=== PATIENT | male | born 1980 | race African-American/Black ===

== ENCOUNTER → 2017-06-19 | Outpatient (REF) ==
[~2017-06-19] MED LIST: /CELE20CA PO; /QUET25TA PO; AMBI12.52 PO; BENA25CA PO; SERO50TA PO; ZOLO100T PO; ZOLO50TA PO; ZOLP-187 PO; flexeril PO
--- NOTE | 2017-06-20 04:07 | REP ---
Clinical: Pain and disability . Technique: Internal rotation, external rotation, and Y view left shoulder . Findings: No acute fracture or dislocation. The acromioclavicular and glenohumeral joints are intact. A very subtle density inferior to the acromion process in the subacromial space cannot be excluded and should be correlated with physical examination. No further overt, significant degenerative changes are appreciated. Surrounding soft tissues are unremarkable. Impression: Relatively normal left shoulder radiographs. However subtle ovoid forming density inferior to the acromion process in the subacromial space cannot be excluded and should be correlated with physical examination. Signed by Tre Vaca MD 06/20/2017 03:58 A
== END ==
LOC: M SMT 14:22
PROVIDERS: ATTEND Internal Medicine
DX: Z02.1 Encounter for pre-employment examination (principal)

== ENCOUNTER 2019-01-16 09:46 | Emergency (ER) | payer OTHER ==
[~2019-01-16] VITALS: Ht 180.3 cm; Wt 90.9 kg
[2019-01-16] MEDS ORDERED: IBUPROFEN 800 MG TAB PO ONE (10:15)
--- NOTE | 2019-01-16 10:51 | REP ---
Clinical: Left shoulder trauma . Technique: Internal rotation, external rotation, and Y view. Findings: No acute fracture or dislocation. The acromioclavicular and glenohumeral joints are intact. No periarticular calcifications or degenerative changes are appreciated. Sub acromial space is normal. Surrounding soft tissues are unremarkable. Impression: Normal left shoulder radiographs. Electronically Signed by Tre Vaca MD 01/16/2019 10:43 A
--- NOTE | 2019-01-16 10:52 | REP ---
Clinical: Trauma. Technique: AP view of the pelvis with neutral and frog lateral views of the left hip. Findings: The osseous structures are intact and there is no evidence for acute fracture or dislocation. Heterotopic areas of ossification along the lateral aspect of the left hip consistent with the given history of prior trauma and myositis. Impression: No acute fracture or dislocation. Electronically Signed by Tre Vaca MD 01/16/2019 10:44 A
--- NOTE | 2019-01-16 10:53 | REP ---
Clinical: Left elbow trauma . Technique: AP, lateral, bilateral oblique views of the left elbow. Findings: No acute fracture or dislocation is appreciated. Joint spaces and surrounding soft tissues appear normal. Lateral view demonstrates normal positioning to the anterior and posterior fat pads without evidence for effusion/hemarthrosis. No subcutaneous emphysema or foreign body identified. Impression: Normal left elbow radiographs. Electronically Signed by Tre Vcaa MD 01/16/2019 10:45 A
[2019-01-16 11:42] VITALS: BP 135/83
== END 2019-01-16 11:44 | disposition home or self-care (01) ==
LOC: M ED 09:46
DX: S70.02XA Contusion of left hip, initial encounter (principal); S40.022A Contusion of left upper arm, initial encounter; V49.49XA Driver injured in collision with other motor vehicles in traffic accident, initial encounter; Y92.410 Unspecified street and highway as the place of occurrence of the external cause; Z88.0 Allergy status to penicillin

== ENCOUNTER 2019-01-24 13:40 | Emergency (ER) | payer OTHER ==
[~2019-01-24] VITALS: Ht 180.3 cm; Wt 90.9 kg
[2019-01-24] MEDS ORDERED: KETOROLAC 60 MG/2 ML VIAL (J1885) IM ONE (14:45)
[2019-01-24] MEDS ORDERED: LIDO5DIS41 TD (14:49)
[2019-01-24 15:16] VITALS: BP 118/69
== END 2019-01-24 15:20 | disposition home or self-care (01) ==
LOC: M ED 13:40
DX: Z04.1 Encounter for examination and observation following transport accident (principal); S40.012A Contusion of left shoulder, initial encounter; S70.02XA Contusion of left hip, initial encounter; V89.2XXA Person injured in unspecified motor-vehicle accident, traffic, initial encounter; Y92.89 Other specified places as the place of occurrence of the external cause; Z88.0 Allergy status to penicillin
CPT/HCPCS: 96372; 99283; J1885

== ENCOUNTER 2020-08-31 15:20 | Inpatient (IN) | payer OTHER ==
[~2020-08-31] VITALS: Ht 180.3 cm; Wt 51.8 kg
[~2020-08-31 15:20] MED LIST changes: -/CELE20CA PO; -/QUET25TA PO; +CELE1CAP4 PO; +LIDO5DIS41 TD; +SERO1TAB3 PO
[2020-08-31] MEDS ORDERED: LORazepam 2 MG/ML VIAL IM ONE ×2 (16:30→21:45)
[2020-08-31] MEDS ORDERED: HALOPERIDOL 5MG/ML VIAL (J1630 PER 1) IM ONE ×2 (16:30→21:45)
[2020-08-31 17:01] LABS: HEMATOCRIT 44.7 % (42.0-52.0); HEMOGLOBIN 14.2 g/dl (13.5-17.5); MEAN CORPUSCULAR HEMOGLOBIN 29.2 pg (27.0-33.0); MEAN CORPUSCULAR HGB CONC 31.8 g/dl (32.0-36.5); PLATELET COUNT, AUTOMATED 407 10^3/uL (150-450); RED BLOOD COUNT 4.86 10^6/uL (4.30-6.10); WHITE BLOOD COUNT 7.4 10^3/uL (4.0-10.0)
[2020-08-31 17:30] LABS: ACETAMINOPHEN LEVEL < 2.0 UG/ML (10.0-30.0); ALBUMIN 4.4 GM/DL (3.2-5.2); ALT/SGPT 24 U/L (12-78); BILIRUBIN,DIRECT 0.2 MG/DL (0.0-0.2); BILIRUBIN,TOTAL 0.5 MG/DL (0.2-1.0); BLOOD UREA NITROGEN 13 MG/DL (7-18); CALCIUM LEVEL 9.5 MG/DL (8.5-10.1); CARBON DIOXIDE LEVEL 26 MEQ/L (21-32); CHLORIDE LEVEL 103 MEQ/L (98-107); CREATININE FOR GFR 1.13 MG/DL (0.70-1.30); ETHYL ALCOHOL (ETHANOL) < 0.003 % (0.000-0.010); GLOMERULAR FILTRATION RATE > 60.0 (>60); GLUCOSE, FASTING 105 MG/DL (70-100); POTASSIUM SERUM 3.1 MEQ/L (3.5-5.1); SALICYLATE LEVEL 3.2 MG/DL (5.0-30.0); SODIUM LEVEL 137 MEQ/L (136-145); TOTAL PROTEIN 8.3 GM/DL (6.4-8.2)
[2020-08-31] MEDS ORDERED: POTASSIUM CHLORIDE 10 MEQ SR TABLET PO ONE (18:15)
--- NOTE | 2020-08-31 18:26 | REPVR ---
PROCEDURE INFORMATION: Exam: CT Head Without Contrast Exam date and time: 08/31/2020 6:16 PM Age: 40 years old Clinical indication: Altered mental status/memory loss TECHNIQUE: Imaging protocol: Computed tomography of the head without contrast. Radiation optimization: All CT scans at this facility use at least one of these dose optimization techniques: automated exposure control; mA and/or kV adjustment per patient size (includes targeted exams where dose is matched to clinical indication); or iterative reconstruction. COMPARISON: No relevant prior studies available. FINDINGS: Brain: Unremarkable. No hemorrhage. No significant white matter disease. No edema. Cerebral ventricles: No ventriculomegaly. Bones/joints: Unremarkable. No acute fracture. Paranasal sinuses: Visualized sinuses are unremarkable. No fluid levels. Mastoid air cells: Visualized mastoid air cells are well aerated. Soft tissues: Unremarkable. IMPRESSION: No acute abnormality. Electronically signed by: Polo Tee On 08/31/2020 18:26:32 PM
[2020-08-31 18:41] LABS: AMPHETAMINES LEVEL URINE NEGATIVE (NEGATIVE); BARBITURATES URINE NEGATIVE (NEGATIVE); BENZODIAZEPINES URINE NEGATIVE (NEGATIVE); CANNABINOIDS URINE POSITIVE (NEGATIVE); COCAINE METABOLITE URINE NEGATIVE (NEGATIVE); METHADONE URINE NEGATIVE (NEGATIVE); OPIATES URINE NEGATIVE (NEGATIVE); PHENCYCLIDINE URINE NEGATIVE (NEGATIVE)
[2020-09-01] MEDS ORDERED: traZODone 50 MG TAB PO PRN (13:15)
[2020-09-01] MEDS ORDERED: MOM 30ML SUSPENSION UDC PO PRN (13:15)
[2020-09-01] MEDS ORDERED: ACETAMINOPHEN TAB 650MG DOSE (2X325MG) PO PRN (13:15)
[2020-09-01] MEDS ORDERED: MAALOX 30 ML SUSP *UDC PO PRN (13:15)
--- NOTE | 2020-09-01 19:17 | ECGEPIP ---
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
[2020-09-02 07:36] VITALS: BP 121/70
--- NOTE | 2020-09-02 10:34 | MHHPEPDOC ---
[facility] History & Physical History and Physical DATE OF ADMISSION: Sep 01, 2020 at 13:13 Subjective HPI: Prince presents today after being admitted to the inpatient mental health unit. He reportedly became irritable and blacked out. Patient reported that he had blacked out and became subsequently much more irritable. He reports suicidal thoughts. Patient was brought in and had spent several days in the ER. He was quite upset about this. Patient was guarded during the first discussion, but was generally open to further discussions. He reports that sometimes he feels low and depressed. Patient additionally feels angry and anxious and that he blacks out, but reports that when hes not blacked out, he generally does well. He rep orts that he is currently going to school with support by family and reports stressful events at school. ALLERGIES: Allergies were reviewed. MEDICATIONS: Hes not interested in medications as he reports that hes distrustful of the mental health care system. 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 Consistent with his PTSD screen seeing for psychotic disorders and bipolar disorder. Patient reports a diagnosis of PTSD and denies any suicide attempts other than self-mutilating. No history of medication trials. [facility] that [facility] had several [facility] before. FAMILY HISTORY: He is quite guarded and doesnt wish to answer about his family history. SURGICAL HISTORY: Surgical history was reviewed. Objective Appearance: Hygiene, fair. Behavior: Engaged. Initially guarded, but becomes amenable. Euthymic. Affect: Reactive. Appropriate. Thought Form: Linear and goal directed. Thought Content: No thoughts of self harm. No evidence of suicidal ideation. No evidence of aggressive or homicidal ideation. No evidence of delusions. Judgement: Poor to fair. Insight: Poor to fair. Assessment F43.12 Post-traumatic stress disorder, chronic Plan Offer patient medications, but he declined after intensive discussion. Discuss with him observations period and discharge if he can maintain safety on the unit. Discuss with him that will sign out with on-call provider to determine what wou ld be appropriate if he can go tomorrow or whether he'd wait till Saturday. He is at a one risk for suicide to an effective coping. Estimated length stay is 1 to 3 days. Vital Signs Vital Signs Date Time Temp Pulse Resp B/P (MAP) Pulse Ox O2 Delivery O2 Flow Rate FiO2 09/02/20 07:36 97.3 66 16 121/70 (87) Room Air 09/01/20 13:50 100 Medications No Active Prescriptions or Reported Meds Allergies Coded Allergies: Penicillins (Verified Allergy, Unknown, 08/31/20) ALLY QUAN DO Sep 02, 2020 10:34
[2020-09-02 16:13] VITALS: BP 136/85
--- NOTE | 2020-09-02 17:38 | HPEPDOC ---
General Date of Admission Sep 01, 2020 at 13:13 Date of Service: Sep 02, 2020 Chief Complaint The patient is a 40-year-old male admitted with a reason for visit of Unspecified Depressive Disorder. History of Present Illness 40 year old male admitted to [facility] for unspecified depression. 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 He then lost time about 3 hours in the afternoon after the Math class and could not remember what he did. He was confused about how he came to the ED. He reportedly made comments about SI/HI. He had a code 25 in the ED. I am seeing the patient for medical history and physical. Patient does not have any complaints today. 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 He is scheduled to see a specialist through the [facility]. Home Medications No Active Prescriptions or Reported Meds Allergies Coded Allergies: Penicillins (Verified Allergy, Unknown, 08/31/20) Past Medical History Medical History PTSD L HIP & SHOULDER INJURED IN THE Surgical History LEFT FOOT SURGERY 12/2018 Family History Significant Family History: Diabetes (mother) Social History * Smoker: current smoker Alcohol: occationally Drugs: marijuana A-FIB/CHADSVASC A-FIB History Current/History of A-Fib/PAF?: No Review of Systems Constitutional: Denies: Chills, Fever, Night Sweats Eyes: Denies: Pain, Vision change ENT: Denies: Head Aches, Ear Pain, Dysphagia Skin: Denies: Rash, Lesions, Breakdown Pulmonary: Denies: Dyspnea, Cough Cardiovascular: Denies: Chest Pain, Palpitations, Orthopnea, Paroxysmal Noc. Dy spnea, Lt Headedness Gastrointestinal: Denies: Nausea, Vomiting, Abdominal Pain, Diarrhea Genitourinary: Denies: Dysuria, Frequency, Incontinence, Retention Musculoskeletal: Denies: Neck Pain, Back Pain, Joint Pain, Muscle Pain, Spasms Physical Examination General Exam: Positive: Alert, No Acute Distress Eye Exam: Positive: PERRLA, Conjunctiva & lids normal, EOMI; Negative: Sclera icteric Neck Exam: Positive: Supple; Negative: JVD, thyromegaly Chest Exam: Positive: Clear to auscultation, Normal air movement Heart Exam: Positive: Rate Normal, Regular Rhythm, Normal S1, Normal S2; Negative: Murmurs, Rubs Abdomen Exam: Positive: Normal bowel sounds, Soft; Negative: Tenderness, Hepatospenomegaly Extremity Exam: Positive: Normal pulses; Negative: Clubbing, Cyanosis, Edema Skin Exam: Positive: Nl turgor and temperature; Negative: Breakdown, Lesion Vital Signs Vital Signs Date Time Temp Pulse Resp B/P (MAP) Pulse Ox O2 Delivery O2 Flow Rate FiO2 09/02/20 07:36 97.3 66 16 121/70 (87) Room Air 09/01/20 13:50 100 Assessment/Plan 40 year old male admitted to [facility] for unspecified depression. 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 He then lost time about 3 hours in the afternoon after the Math class and could not remember what he did. He was confused about how he came to the ED. He reportedly made comments about SI/HI. He had a code 25 in the ED. I am seeing the patient for medical history and physical. Patient does not have any complaints today. 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 [facility]. Depression as per psychiatry H/o blackouts/ lost time ? psychiatric vs medical EKG no abnormality, CT head negative. will get an EEG on Saturday if still here otherwise this can be done as an outpatient. [facility] with [facility]. Plan / VTE VTE Prophylaxis Ordered?: No (freely ambulatory) JACKIE BARRERA MD Sep 02, 2020 14:06
[2020-09-03 06:29] VITALS: BP 145/99
[2020-09-03 16:33] VITALS: BP 132/74
--- NOTE | 2020-09-03 18:53 | MHIPNPDOC ---
[facility] Progress Note Progress Note DATE OF SERVICE: 09/03/20 HISTORY: As per ED report: "Pt became very obstinate and refused to change for TW and the rest of [facility] staff. Pt reports that he redacts his statement about feeling SI and that he wants to now leave. Pt reports that he would like to see hospital policy where it states that he is now considered a threat to himself/others and he is not able to leave. Pt after much convincing changed himself and allowed RN to draw his blood. Pt reports that he does not recall any of the events that happened earlier. Pt reports that the last thing he remembers is leaving math class at [employer] early at roughly 2 p.m. Pt reports that he was very angry after receiving many grades that were failing and he walked out early. Pt reports that it was at that point he has lost roughly 3 hours and does not recall the above events. Pt is now very compliant and is very confused. Pt reports that he does not feel SI/HI. Reports having a poor appetite and sleep. Pt is alert and oriented times 4. Pt continues to be rather confused on how he got to [facility] and continues to state "what is going on"? Tw spoke with Sumi ([phone]) who states that pts mood and temperament has been getting worse lately. Pts states that he has not really talked so much about suicide but more about hurting himself. Pts reports that she fears that pt gets so angry at times that he will hurt himself just because, it takes him so long to calm down. Pts states that all the hatred in the world is making pt very upset, he wants everyone to just love each other. Pt reports that she doesn't feel as though pt is as much as of a danger to his family as he is to himself." VITAL SIGNS: See below. NEW TEST RESULTS: See below CURRENT MEDICATIONS: See below. MENTAL STATUS EXAMINATION: Patient is a 40 year old male, who is alert, dressed in hospital clothes, irritable, with good eye contact. Speech: Is normal in r/t/v, spontaneous and fluent. Language skills are good. Thought processes including: linear and coherent. Thought content: negative for SI/HI, thought delusions, positive for angry thoughts Description of associations: fair Description of abnormal or psychotic thoughts: denies t/a/v hallucinations, denies thought delusions but he is paranoid. Judgment: limited Insight: limited Orientation: x 3 Recent and remote memory: has limited recollection about recent events Attention span and concentration: good Fund of knowledge: average Mood: irritable, angry because he wants to leave Affect: congruent with mood DIAGNOSES: 1. Unspecified psychotic disorder ASSESSMENT: The patient is extremely irritable because he can't have some fresh air to breath, because the windows are dark and he can't see what's going outside, because he says Dr. Oreilly told him I could possibly discharge him. i tried to explain why I can't let him go, why i can't change the windows, why he can't go out to have some fresh air. he doesn't want to listen, he is very, very irritable. he denies SI/Hi but I think he has very poor judgment and poor impulse control. He still comes off as being very paranoid. MANAGEMENT PLAN: As per Dr. Oreilly. the patient is not going to be discharged over the weekend. He is an angry young man with poor impulse control and poor judgment TIME SPENT: 15 minutes. Vital Signs Vital Signs Date Time Temp Pulse Resp B/P (MAP) Pulse Ox O2 Delivery O2 Flow Rate FiO2 09/03/20 06:29 97.1 83 18 145/99 (114) Room Air 09/01/20 13:50 100 Current Medications Current Medications Medications (Trade) Dose Ordered Sig/Ian Route PRN Reason Start Time Stop Time Status Last Admin Dose Admin Acetaminophen (Tylenol Tab) 650 mg Q6HP PRN PO HEADACHE or DISCOMFORT 09/01/20 13:15 Al Hydrox/Mg Hydrox/Simethicone (Mylanta) 30 ml Q4HP PRN PO HEARTBURN/INDIGESTION 09/01/20 13:15 Home Med (Med Rec Complete!) ASDIRECTED XX 09/01/20 11:00 09/01/20 10:57 DC Magnesium Hydroxide (Milk Of Magnesia) 30 ml DAILYPRN PRN PO CONSTIPATION 09/01/20 13:15 Trazodone HCl (Desyrel) 50 mg QHSP PRN PO INSOMNIA 09/01/20 13:15 Allergies Coded Allergies: Penicillins (Verified Allergy, Unknown, 08/31/20) MG RUBIO MD Sep 03, 2020 16:23
--- NOTE | 2020-09-04 14:32 | MHIPNPDOC ---
[facility] Progress Note Progress Note DATE OF SERVICE: 09/04/20 HISTORY: As per ED report: "Pt became very obstinate and refused to change for TW and the rest of [facility] staff. Pt reports that he redacts his statement about feeling SI and that he wants to now leave. Pt reports that he would like to see hospital policy where it states that he is now considered a threat to himself/others and he is not able to leave. Pt after much convincing changed himself and allowed RN to draw his blood. Pt reports that he does not recall any of the events that happened earlier. Pt reports that the last thing he remembers is leaving math class at [employer] early at roughly 2 p.m. Pt reports that he was very angry after receiving many grades that were failing and he walked out early. Pt reports that it was at that point he has lost roughly 3 hours and does not recall the above events. Pt is now very compliant and is very confused. Pt reports that he does not feel SI/HI. Reports having a poor appetite and sleep. Pt is alert and oriented times 4. Pt continues to be rather confused on how he got to [facility] and continues to state "what is going on"? Tw spoke with Sumi ([phone]) who states that pts mood and temperament has been getting worse lately. Pts states that he has not really talked so much about suicide but more about hurting himself. Pts reports that she fears that pt gets so angry at times that he will hurt himself just because, it takes him so long to calm down. Pts states that all the hatred in the world is making pt very upset, he wants everyone to just love each other. Pt reports that she doesn't feel as though pt is as much as of a danger to his family as he is to himself." VITAL SIGNS: See below. NEW TEST RESULTS: See below CURRENT MEDICATIONS: See below. MENTAL STATUS EXAMINATION: Patient is a 40 year old male, who is alert, dressed in hospital clothes, irritable/angry, walking the hallways ( backwards), with poor eye contact. Speech: He minimally interacted with me although he kept passing by my office walking backwards. He was loud and inappropriate towards staff members this morning. Language skills are good. Thought processes including: not coherent, not logical Thought content: I didn't speak with him because he was very angry but he told other staff members that he did not have SI/HI, thought delusions. He has angry thoughts, he may be delusional, he may be grandiose, although h denies it, but he acts grandiose. Description of associations: fair Description of abnormal or psychotic thoughts: he has denied delusions and TAV h allucinations but he has a sense of entitlement, perhaps grandiose delusions?. I could not assess this today becuse he is very irritable Judgment: limited Insight: limited Orientation: not assessed at this time Recent and remote memory: not assessed at this time Attention span and concentration: good Fund of knowledge: average Mood: irritable, angry with staff Affect: congruent with mood DIAGNOSES: 1. Unspecified psychotic disorder ASSESSMENT: I assessed him mostly by observation because he was irritable and had been verbally and physically aggressive towards staff earlier in the morning. He kept going in front of my office, walking backwards, he would look at me with the coner of his eye, very angry, as if he was trying to get a response from me. he is unstable, at this point is difficult to say if his reactions are the result or psychosis or if they are behavioral. He is angry because he can't go out "for fresh air" and because the windows are tinted and he was very angry at me last night because he pretended that I would change the windows and the rules for him . This morning he was verbally aggressive towards his Nurse and other staff members. His woes aound the Hospital, driving her car, waving for him and for that reason he wants the windows to be clear. I perceive a sense of entitlement there that makes me think he could have bipolar disorder. Also, he decompensated because he didn't get the grades he expected. It seems he has grandiose ideation. Unfortunately he has been refusing to take his medications MANAGEMENT PLAN: As per Dr. Oreilly. the patient is not going to be discharged over the weekend. He is an angry young man with poor impulse control and poor judgment TIME SPENT: 10 minutes. Vital Signs Vital Signs Date Time Temp Pulse Resp B/P (MAP) Pulse Ox O2 Delivery O2 Flow Rate FiO2 09/03/20 16:33 98.9 67 16 132/74 (93) 10/17/20 06:29 Room Air 09/01/20 13:50 100 Current Medications Current Medications Medications (Trade) Dose Ordered Sig/Ian Route PRN Reason Start Time Stop Time Status Last Admin Dose Admin Acetaminophen (Tylenol Tab) 650 mg Q6HP PRN PO HEADACHE or DISCOMFORT 09/01/20 13:15 Al Hydrox/Mg Hydrox/Simethicone (Mylanta) 30 ml Q4HP PRN PO HEARTBURN/INDIGESTION 09/01/20 13:15 Home Med (Med Rec Complete!) ASDIRECTED XX 09/01/20 11:00 09/01/20 10:57 DC Magnesium Hydroxide (Milk Of Magnesia) 30 ml DAILYPRN PRN PO CONSTIPATION 09/01/20 13:15 Trazodone HCl (Desyrel) 50 mg QHSP PRN PO INSOMNIA 09/01/20 13:15 Allergies Coded Allergies: Penicillins (Verified Allergy, Unknown, 08/31/20) MG RUBIO MD Sep 04, 2020 14:32
[2020-09-04 17:15] VITALS: BP 135/80
--- NOTE | 2020-09-05 09:57 | MHIPNPDOC ---
[facility] Progress Note Progress Note DATE OF SERVICE: 09/05/20 Subjective HPI: Prince presents today for concerns about being easily upset and irritable this weekend. MEDICATIONS: Patient states he is uninterested in medication Objective Affect: Mildly Irritable but appropriate. Speech: Normal volume. Normal rate. Spontaneous and Fluid. Thought Content: No evidence of suicidal ideation. Guarded. Distrustful. No evidence of delusions. No thoughts of self harm. No evidence of aggressive or homicidal ideation. Judgement: Poor. Insight: Poor. Assessment F43.12 Post-traumatic stress disorder, chronic F33.9 Major depressive disorder, recurrent, unspecified Plan Continue observation as patient still does not want medications. Vital Signs Vital Signs Date Time Temp Pulse Resp B/P (MAP) Pulse Ox O2 Delivery O2 Flow Rate FiO2 09/04/20 17:15 98.5 70 18 135/80 (98) 09/03/20 06:29 Room Air 09/01/20 13:50 100 Current Medications Current Medications Medications (Trade) Dose Ordered Sig/Ian Route PRN Reason Start Time Stop Time Status Last Admin Dose Admin Acetaminophen (Tylenol Tab) 650 mg Q6HP PRN PO HEADACHE or DISCOMFORT 09/01/20 13:15 Al Hydrox/Mg Hydrox/Simethicone (Mylanta) 30 ml Q4HP PRN PO HEARTBURN/INDIGESTION 09/01/20 13:15 Home Med (Med Rec Complete!) ASDIRECTED XX 09/01/20 11:00 09/01/20 10:57 DC Magnesium Hydroxide (Milk Of Magnesia) 30 ml DAILYPRN PRN PO CONSTIPATION 09/01/20 13:15 Trazodone HCl (Desyrel) 50 mg QHSP PRN PO INSOMNIA 09/01/20 13:15 Allergies Coded Allergies: Penicillins (Verified Allergy, Unknown, 08/31/20) ALLY QUAN DO Sep 05, 2020 09:57
[2020-09-05 17:48] VITALS: BP 138/78
[2020-09-06 06:36] VITALS: BP 152/84
[2020-09-07 06:32] VITALS: BP 137/74
--- NOTE | 2020-09-08 13:34 | MHDS ---
DATE OF ADMISSION: 09/01/2020 DATE OF DISCHARGE: 09/07/2020 DISCHARGE DIAGNOSES: * Post traumatic stress disorder. * Chronic major depressive disorder, recurrent, unspecified. REASON FOR ADMISSION: Patient was admitted to Inpatient Mental Health. He had received many failing grades in his math class. He walked out of class, lost track of time and could not remember what he did. He was confused about how he came to the ED. He reportedly made comments about suicidal and homicidal ideation and became a Code 25 in the ED. He self presented to the Emergency Department due to mild confusion and not remembering what he did after leaving his class. He became very irritable at one point. Patient stated that he feels angry and anxious when he blacks out and reports that when he is not blacked out he generally does well. He reports he is going to school doing fairly well with the exception of this math class and has good supports of his family, but does report stressful events in school. CONSULTANTS INVOLVED: See Medical H&P by medical provider. TREATMENT AND PROGRESS ON THE UNIT: Patient was afforded with the following treatment modalities: * Individual therapy. * Group therapy. * Medication management. * Milieu therapy. * Safe environment. HOSPITAL COURSE OF TREATMENT: Patient was admitted to the Inpatient Mental Health Unit. He was afforded the opportunity for medication management. Patient was disinterested in this and we observed patient for several days to determine that he was not exhibiting any psychotic episodes. He was calm and cooperative in the milieu, social with peers. He had moments of irritability, but today he was calm and cooperative in the interview. DISCHARGE ASSESSMENT: Patient denies depression, suicidal ideation, homicidal ideation, auditory hallucinations. He is not observed with any delusions, paranoia, psychosis, petar or obsessions. He is alert and oriented and requesting to be discharged. MENTAL STATUS EXAMINATION ON DISCHARGE: Patient is a 40-year-old , domiciled, -Cong[place]ese male who is calm and cooperative in the interview, smiles on approach. Eye contact is good. He is dressed in hospital scrubs. His hygiene and grooming is well kepmt. No observations of psychomotor retardation or agitation. Speech is spontaneous, fluid and conversant, normal rate, tone and volume. Language skills are intact. Thought processes are reality based, linear and goal oriented. Thought content, he denies depression, anxiety, suicidal/homicidal ideation, planning or intent. No abnormal psychotic symptoms. Abstract reasoning and computation is fair. Description of association is not observed. There are no abnormal or psychotic thoughts that were observed. His insight and judgment is good. He is alert and oriented to person, place, time and situation. Recent and remote memory is intact. Attention span and concentration is good. Language skills are expansive. Fund of knowledge is above average. Mood and affect is euthymic and congruent. DISCHARGE MEDICATIONS: None. PLAN AND FOLLOW UP: Please see Discharge Planners Notes on this. I believe the patient stated that he was wanting to return to the [facility] for his outpatient mental health. The amount of time spent in coordination of care for this patient was approximately 20 minutes. PRANEETH
== END 2020-09-07 13:05 | disposition home or self-care (01) | DRG 885 ==
LOC: M ED 15:20 → M ED INP 09-01 13:13 → M PSY 09-01 13:58
PROVIDERS: ADMIT Psychiatry & Neurology Psychiatry; ATTEND Psychiatry & Neurology Addiction Medicine
DX: F33.9 Major depressive disorder, recurrent, unspecified (principal); F43.10 Post-traumatic stress disorder, unspecified; Z88.0 Allergy status to penicillin; F17.200 Nicotine dependence, unspecified, uncomplicated